=== PATIENT | female | born 1955 | race Caucasian/White ===

== ENCOUNTER 2018-11-12 08:33 | Outpatient (REF) | payer OTHER, SELFPAY ==
[2018-11-12 20:31] LABS: Glucose 100 mg/dL (70-100); TSH (W/Ref FT4) 1.75 uIU/mL (0.358-3.74)
== END 2018-11-12 08:53 ==
LOC: NCHCN 08:33
PROVIDERS: PCP Family Medicine; Visit Provider Family Medicine
DX: E03.9 Hypothyroidism, unspecified (principal); Z00.00 Encounter for general adult medical examination without abnormal findings
CPT/HCPCS: 82947; 84443

== ENCOUNTER → 2019-01-21 12:35 | Outpatient (REF) | payer OTHER, SELFPAY ==
--- NOTE | 2019-01-21 08:30 | PAPFT_PTH ---
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
[2019-02-04 19:48] LABS: HPV High Risk type 16, PCR Negative (Negative); HPV High Risk type 18, PCR Negative (Negative); HPV other High Risk types, PCR Negative (Negative); Specimen Source Vaginal
== END ==
LOC: NCHCN 12:35
PROVIDERS: PCP Family Medicine; Visit Provider Family Medicine
DX: Z00.00 Encounter for general adult medical examination without abnormal findings (principal); Z12.4 Encounter for screening for malignant neoplasm of cervix; Z11.51 Encounter for screening for human papillomavirus (HPV)
CPT/HCPCS: 87624; 88142

== ENCOUNTER 2019-01-25 00:31 | Outpatient (CLI) | payer OTHER, SELFPAY ==
--- NOTE | 2019-01-25 08:43 | DI.RAD_ITS ---
SYMPTOM/DIAGNOSIS: BILAT KNEE PAIN LEFT KNEE: There is mild narrowing of the medial femoral tibial joint space and mild kathy- articular spurring. There are mild patellofemoral degenerative changes as well as spurring at the quadriceps insertion on the patella. IMPRESSION: Mild degenerative changes. RIGHT KNEE: There is moderate narrowing of the medial femoral tibial joint space and periarticular spurring. There is some varus angulation. There are also degenerative changes of the patellofemoral joint with inferior spurring. IMPRESSION: Moderate degenerative changes.
== END 2019-01-25 00:51 ==
PROVIDERS: PCP Family Medicine; Visit Provider Family Medicine
DX: M25.561 Pain in right knee (principal); M25.562 Pain in left knee; M17.0 Bilateral primary osteoarthritis of knee
CPT/HCPCS: 73562

== ENCOUNTER 2020-01-26 21:14 | Outpatient (REF) | payer MEDICARE, BC, SELFPAY ==
[2020-01-26 20:52] LABS: TSH (W/Ref FT4) 1.38 uIU/mL (0.36-3.74)
== END 2020-01-26 21:34 ==
LOC: NCHCN 21:14
PROVIDERS: PCP Family Medicine; Visit Provider Family Medicine
DX: E03.9 Hypothyroidism, unspecified (principal)
CPT/HCPCS: 84443

== ENCOUNTER 2020-06-09 15:07 | Outpatient (REF) | payer MEDICARE, BC, SELFPAY ==
[2020-06-12 17:50] LABS: COVID-19 RT-PCR UVMMC Result Negative (Negative)
== END 2020-06-09 15:27 ==
LOC: NCHCN 15:07
PROVIDERS: PCP Family Medicine; Visit Provider Nurse Practitioner Family
DX: Z11.59 Encounter for screening for other viral diseases (principal)
CPT/HCPCS: U0003

== ENCOUNTER 2020-12-22 11:06 | Outpatient (REF) | payer MEDICARE, BC, SELFPAY ==
[2020-12-22 14:54] LABS: Anion Gap 11.6 mmol/L (3-11); BUN 15 mg/dL (7-18); CO2 25.4 mmol/L (21.0-32.0); CREATININE 0.8 mg/dL (0.55-1.02); Calcium 8.8 mg/dL (8.5-10.1); Calculated LDL 191 mg/dL (<100); Chloride 106 mmol/L (98-107); Cholesterol 267 mg/dL (<200); Glucose 95 mg/dL (74-106); HDL Cholesterol 52 mg/dL (40-60); Potassium 4.4 mmol/L (3.5-5.1); Sodium 143 mmol/L (136-145); Triglyceride 124 mg/dL (<150)
== END 2020-12-22 11:07 | disposition home or self-care (01) ==
LOC: NCHCN 11:06
PROVIDERS: PCP Family Medicine; Visit Provider Family Medicine
DX: E03.9 Hypothyroidism, unspecified (principal); R73.9 Hyperglycemia, unspecified
CPT/HCPCS: 80048; 80061

== ENCOUNTER 2020-12-28 15:15 | Outpatient (REF) | payer MEDICARE, BC, SELFPAY | END 2020-12-28 15:16 | disposition home or self-care (01) | LOC: NCHCN 15:15 | PROVIDERS: PCP Family Medicine; Visit Provider Nurse Practitioner | DX: N39.0 Urinary tract infection, site not specified (principal) | CPT/HCPCS: 87077; 87086; 87186 ==

== ENCOUNTER 2021-01-03 08:18 | Outpatient (REF) | payer MEDICARE, BC, SELFPAY ==
[2021-01-03 20:05] LABS: Hemoglobin A1C 5.6 % (<5.7)
[2021-01-03 20:07] LABS: TSH (W/Ref FT4) 0.68 uIU/mL (0.36-3.74)
== END 2021-01-03 08:19 | disposition home or self-care (01) ==
LOC: NCHCN 08:18
PROVIDERS: PCP Family Medicine; Visit Provider Family Medicine
DX: E03.9 Hypothyroidism, unspecified (principal); R73.9 Hyperglycemia, unspecified
CPT/HCPCS: 83036; 84443

== ENCOUNTER 2021-03-26 01:04 | Outpatient (CLI) | payer MEDICARE, BC, SELFPAY ==
--- NOTE | 2021-03-26 | DI.MAMMO_ITS ---
Exam(s) MAMMO SCREENING EXAM: MAMMO SCREENING CLINICAL HISTORY: SCREENING,Z12.31 TECHNIQUE: Mammograms were interpreted according to the usual protocol including computer analysis w [employer] CAD system, tomosynthesis and C-view imaging. COMPARISON: 2007 through 2017 FINDINGS: The breasts are composed of scattered fibroglandular densities, Breast Density category B. No suspicious masses or suspicious microcalcifications are seen. No skin thickening or abnormal axillary lymph nodes are seen. There has been no significant change from prior exams. IMPRESSION: BI-RADS Category 1, Negative mammogram Yearly screening mammography is recommended. Breast Density - Category B, scattered fibroglandular densities. A negative radiographic report should not delay biopsy if a dominant or clinically suspicious mass is present. Up to ten percent of cancers are not identified on mammography. A negative report may reinforce clinical impression. Adenosis and dense breasts may obscure an underlying neoplasm. False positive reports average 6 to 10%. Patient will receive a letter notifying them of these results.
== END 2021-03-26 01:24 ==
PROVIDERS: PCP Family Medicine; Visit Provider Family Medicine
DX: Z12.31 Encounter for screening mammogram for malignant neoplasm of breast (principal)
CPT/HCPCS: 77063; 77067

== ENCOUNTER 2021-05-16 09:55 | Outpatient (REF) | payer MEDICARE, BC, SELFPAY ==
[2021-05-16 20:33] LABS: ALT 25 U/L (14-59); Calculated LDL 110 mg/dL (<100); Cholesterol 195 mg/dL (<200); HDL Cholesterol 69 mg/dL (40-60); Triglyceride 82 mg/dL (<150)
== END 2021-05-16 09:56 | disposition home or self-care (01) ==
LOC: NCHCN 09:55
PROVIDERS: PCP Family Medicine; Visit Provider Family Medicine
DX: E03.9 Hypothyroidism, unspecified (principal); Z13.1 Encounter for screening for diabetes mellitus; Z00.00 Encounter for general adult medical examination without abnormal findings
CPT/HCPCS: 80061; 84460

== ENCOUNTER 2022-04-19 17:50 | Outpatient (REF) | payer MEDICARE, BC, SELFPAY ==
[2022-04-19 19:25] LABS: TSH (W/Ref FT4) 1.62 uIU/mL (0.36-3.74)
== END 2022-04-19 17:51 | disposition home or self-care (01) ==
LOC: NCHCN 17:50
PROVIDERS: PCP Family Medicine; Visit Provider Family Medicine
DX: E03.9 Hypothyroidism, unspecified (principal)
CPT/HCPCS: 84443

== ENCOUNTER 2022-06-27 01:09 | Outpatient (CLI) | payer MEDICARE, BC, SELFPAY ==
--- NOTE | 2022-06-27 | DI.MAMMO_ITS ---
Exam(s) MAMMO SCREENING EXAM: MAMMO SCREENING CLINICAL HISTORY: SCREENING, Z12.31. TECHNIQUE: Bilateral full field digital CC and MLO mammographic images were obtained with 3D tomosyn thesis and utilizing computer aided detection (CAD). COMPARISON: Prior mammograms were reviewed. FINDINGS: There has been no significant change in the appearance and distribution of the fibroglandular tissue. There are no new spiculated masses nor malignant appearing microcalcification groups. There is no significant architectural distortion nor skin thickening-retraction. IMPRESSION: No radiographic evidence of malignancy. BI-RADS Category 1 - Negative Breast Density - Category B - Scattered areas of fibroglandular density Breast density Category C or D implies that the patient has dense breast tissue. Dense breast tissue can make it harder to find cancer on a mammogram. Dense breast tissue is also associated with an incr eased risk of breast cancer. This information about the result of the mammogram report was provided to the patient to raise their awareness. Use this report when you speak with the patient about their risks for breast cancer, which includes their family history. At that time, you may recommend additional screening tests (Ultrasoun d or MRI) as these tests may add significant information. A negative radiographic report should not delay biopsy if a dominant or clinically suspicious mass is present. Up to ten percent of cancers are not identified on mammography. A negative report may reinforce clinical impression. Adenosis and dense breasts may obscure an underlying neoplasm. False positive reports average 6 to 10%. Patient will receive a letter notifying them of these results.
== END 2022-06-27 01:29 ==
LOC: DI 01:10
PROVIDERS: PCP Family Medicine; Visit Provider Family Medicine
DX: Z12.31 Encounter for screening mammogram for malignant neoplasm of breast (principal)
CPT/HCPCS: 77063; 77067

== ENCOUNTER 2022-08-09 00:32 | Outpatient (CLI) | payer MEDICARE, BC, SELFPAY ==
--- NOTE | 2022-08-09 13:50 | DI.DEXA_ITS ---
Exam(s) XR DEXA BONE DENSITY W/WO NUNO EXAM: XR DEXA BONE DENSITY W/WO NUNO CLINICAL HISTORY: SCREENING FOR OSTEOPOROSIS IN POSTMENOPAUSAL WOMAN,Z78.0 TECHNIQUE: [employer] C densitometer analysis of left hip, lumbar spine and left forearm. COMPARISON: No exams were available for comparison FINDINGS: Lateral view of the thoracic and lumbar spine shows no evidence of compression fractures. Bone mineral density measurements of the lumbar spine correspond to a total T-score of -2.0, in the osteopenic range. Bone mineral density measurements of the left hip correspond to a total T-score of -1.5. The femora l neck T-score is -2.1, in the osteopenic range.. The left forearm bone mineral density measurements correspond to a T-score of the distal 3rd of -2.3 , in the osteopenic range.. IMPRESSION: Osteopenia of the lumbar spine, left hip and forearm.
== END 2022-08-09 00:52 ==
LOC: DI 00:32
PROVIDERS: PCP Family Medicine; Visit Provider Family Medicine
DX: Z78.0 Asymptomatic menopausal state (principal); Z13.820 Encounter for screening for osteoporosis; M85.89 Other specified disorders of bone density and structure, multiple sites
CPT/HCPCS: 77080

== ENCOUNTER 2022-10-24 18:42 | Outpatient (REF) | payer MEDICARE, BC, SELFPAY | END 2022-10-24 18:43 | disposition home or self-care (01) | LOC: LBN 18:42 | PROVIDERS: PCP Family Medicine; Visit Provider Physician Assistant Medical | DX: J02.9 Acute pharyngitis, unspecified (principal) | CPT/HCPCS: 87070 ==

== ENCOUNTER 2023-07-28 12:34 | Outpatient (REF) | payer MEDICARE, BC, SELFPAY ==
[2023-07-28 16:40] LABS: Glucose 103 mg/dL (74-106); TSH (W/Ref FT4) 0.92 uIU/mL (0.36-3.74)
[2023-07-28 16:42] LABS: Vitamin D 25 Total 15.6 ng/mL (30-100)
[2023-07-29 09:42] LABS: Hepatitis C Ab w Rflx HCV PCR Negative (Negative)
== END 2023-07-28 12:35 | disposition home or self-care (01) ==
LOC: NCHCN 12:34
PROVIDERS: PCP Family Medicine; Visit Provider Family Medicine
DX: E03.9 Hypothyroidism, unspecified (principal); E66.8 Other obesity; Z11.59 Encounter for screening for other viral diseases; R79.89 Other specified abnormal findings of blood chemistry
CPT/HCPCS: 82306; 82947; 86803; 84443

== ENCOUNTER 2023-12-01 08:51 | Outpatient (REF) | payer MEDICARE, BC, SELFPAY ==
[2023-12-01 16:39] LABS: Hemoglobin A1C 5.7 % (<5.7)
[2023-12-01 16:57] LABS: Vitamin D 25 Total 35.5 ng/mL (30-100)
== END 2023-12-01 08:52 | disposition home or self-care (01) ==
LOC: NCHCN 08:51
PROVIDERS: PCP Family Medicine; Visit Provider Family Medicine
DX: E55.9 Vitamin D deficiency, unspecified (principal); R73.09 Other abnormal glucose
CPT/HCPCS: 82306; 83036

== ENCOUNTER 2025-02-02 14:40 | Outpatient (REF) | payer MEDICARE, BC, SELFPAY ==
[2025-02-02 15:46] LABS: Hemoglobin A1C 5.4 % (<5.7)
[2025-02-02 16:40] LABS: ALT 22 U/L (14-59); AST 19 U/L (15-37); Albumin 4.0 g/dL (3.4-5.0); Alkaline Phosphatase 106 U/L (46-116); Anion Gap 8.0 mmol/L (3-11); BUN 17 mg/dL (7-18); Bilirubin, Total 0.4 mg/dL (0.2-1.0); CO2 29.0 mmol/L (21.0-32.0); Calcium 9.0 mg/dL (8.5-10.1); Chloride 106 mmol/L (98-107); Estimated GFR 92.41 (mL/min/1.73m2); Glucose 102 mg/dL (74-106); Potassium 4.2 mmol/L (3.5-5.1); Sodium 143 mmol/L (136-145); TSH (W/Ref FT4) 0.86 uIU/mL (0.36-3.74); Total Protein 7.3 g/dL (6.4-8.2)
[2025-02-03 19:31] LABS: Vitamin D 25 Total 23 ng/mL (30-100)
== END 2025-02-02 14:41 | disposition home or self-care (01) ==
LOC: NCHCN 14:40
PROVIDERS: PCP Family Medicine; Visit Provider Family Medicine
DX: R73.03 Prediabetes (principal); E03.9 Hypothyroidism, unspecified
CPT/HCPCS: 80053; 82306; 83036; 84443

== ENCOUNTER 2025-03-02 02:35 | Outpatient (CLI) | payer MEDICARE, BC, SELFPAY ==
--- NOTE | 2025-03-02 | DI.MAMMO_ITS ---
Exam(s) MAMMO SCREENING EXAM: MAMMO SCREENING CLINICAL HISTORY: SCREENING MAMMO Z12.31 TECHNIQUE: Mammograms were interpreted according to the usual protocol including computer analysis with CAD system, tomosynthesis and C-view imaging. COMPARISON: 2015 through 2022 FINDINGS: The breasts are composed of scattered fibroglandular densities, Breast Density category B. No suspicious masses or suspicious microcalcifications are seen. No skin thickening or abnormal axillary lymph nodes are seen. There has been no significant change from prior exams. IMPRESSION: BI-RADS Category 1, Negative mammogram Yearly screening mammography is recommended. Breast Density - Category B - There are scattered areas of fibroglandular density. Breast density Category C or D implies that the patient has dense breast tissue. Dense breast tissue can make it harder to find cancer on a mammogram. Dense breast tissue is also associated with an increased risk of breast cancer. This information about the result of the mammogram report was provided to the patient to raise their awareness. Use this report when you speak with the patient about their risks for breast cancer, which includes their family history. At that time, you may recommend additional screening tests (Ultrasound or MRI) as these tests may add significant information. A negative radiographic report should not delay biopsy if a dominant or clinically suspicious mass is present. Up to ten percent of cancers are not identified on mammography. A negative report may reinforce clinical impression. Adenosis and dense breasts may obscure an underlying neoplasm. False positive reports average 6 to 10%. Patient will receive a letter notifying them of these results.
== END 2025-03-02 02:55 ==
LOC: DI 02:35
PROVIDERS: PCP Family Medicine; Visit Provider Family Medicine
DX: Z12.31 Encounter for screening mammogram for malignant neoplasm of breast (principal)
CPT/HCPCS: 77063; 77067

== ENCOUNTER 2025-03-23 13:59 | Outpatient (REF) | payer MEDICARE, BC, SELFPAY ==
[2025-03-23 15:46] LABS: Vitamin D 25 Total 28 ng/mL (30-100)
== END 2025-03-23 14:00 | disposition home or self-care (01) ==
LOC: NCHCN 13:59
PROVIDERS: PCP Family Medicine; Visit Provider Family Medicine
DX: E55.9 Vitamin D deficiency, unspecified (principal)
CPT/HCPCS: 82306